=== PATIENT | male | born 1955 | race Two or more races ===

== ENCOUNTER 2023-02-06 08:55 | Inpatient (IN) | payer OTHER ==
[~2023-02-06] VITALS: Ht 167.6 cm; Wt 83.3 kg
[~2023-02-06 08:55] MED LIST: SIMV40TA42 PO
[2023-02-06] MEDS ORDERED: TRANEXAMIC ACID 20 ML ONE (11:27)
[2023-02-06] MEDS ORDERED: VANCOMYCIN HCL 1000 MG VL ONE (11:52)
[2023-02-06] MEDS ORDERED: MORPHINE SULFATE INJ 2 MG/ml SYRG IV PRN ×2 (12:00→18:45)
[2023-02-06] MEDS ORDERED: VANCOMYCIN 1GM/250ML 250 ML IV ONE (12:00)
[2023-02-06] MEDS ORDERED: HYDROmorphone HCL 2 MG/ML VL/or syr IV PRN ×2 (12:00)
[2023-02-06] MEDS ORDERED: METOCLOPRAMIDE HCL 5MG/ml INJ 2ml VIAL IV PRN (12:00)
[2023-02-06] MEDS ORDERED: MIDAZOLAM HCL 2MG/2ML 2ml VIAL (1mg/ml) ONE (12:01)
[2023-02-06] MEDS ORDERED: HYDROmorphone HCL 2 MG/ML VL/or syr ONE ×2 (12:01→20:48)
[2023-02-06] MEDS ORDERED: ONDANSETRON HCL 4 MG/2 ML VIAL ONE (12:01)
[2023-02-06] MEDS ORDERED: fentaNYL CITRATE 100 MCG/2 ML VL ONE ×3 (12:01→17:09)
[2023-02-06] MEDS ORDERED: NEOSTIGMINE 1 MG/ML INJ (10mg/10ML VIAL) ONE (12:01)
[2023-02-06] MEDS ORDERED: ROCURONIUM 10MG/ML 10ML VIAL IV ONE (12:01)
[2023-02-06] MEDS ORDERED: SODIUM CHLORIDE LOCK 30 ML ONE (12:01)
[2023-02-06] MEDS ORDERED: PROPOFOL 10 MG/ML 20 ML IV ONE (12:01)
[2023-02-06] MEDS ORDERED: NITROGLYCERIN 0.4 MG SL TAB SL PRN (18:45)
[2023-02-06] MEDS: D5W/SOD CHLO 0.9% 1,000 ML IV SCH (18:45)
[2023-02-06] MEDS ORDERED: ONDANSETRON HCL 4 MG/2 ML VIAL IV PRN (18:45)
[2023-02-06] MEDS ORDERED: ACETAMINOPHEN 325 MG TAB PO PRN (18:45)
[2023-02-06] MEDS ORDERED: TRANEXAMIC ACID 10 ML ONE (18:47)
[2023-02-06 19:33] VITALS: O2SAT 98
[2023-02-06] MEDS ORDERED: CYCLOBENZAPRINE HCL 10 MG TAB PO ONE (19:45)
[2023-02-06 22:00] VITALS: BP 143/62; PULSE 69; RESP 16; TEMP 97.9; O2SAT 98
[2023-02-06] MEDS: ATORVASTATIN 20 MG TAB PO SCH (22:00)
[2023-02-06] MEDS: CYCLOBENZAPRINE HCL 10 MG TAB PO SCH (22:00)
[2023-02-06] MEDS: DOCUSATE SOD 100 MG CAP PO SCH (22:00)
[2023-02-07] MEDS: HYDROcodone-ACET 10/325MG TAB PO PRN ×2 (01:46→11:20)
[2023-02-07] MEDS: MORPHINE SULFATE INJ 2 MG/ml SYRG IV PRN ×2 (03:10→09:23)
[2023-02-07] MEDS: D5W/SOD CHLO 0.9% 1,000 ML IV SCH (03:16)
[2023-02-07] MEDS ORDERED: VANCOMYCIN PER PHARMACY 0 MG IV SCH (04:00)
[2023-02-07 05:00] VITALS: BP 104/68; PULSE 75; RESP 14; TEMP 98.3; O2SAT 95
[2023-02-07] MEDS: VANCOMYCIN 1GM/250ML 250 ML IV SCH ×2 (06:02→17:25)
[2023-02-07] MEDS: CYCLOBENZAPRINE HCL 10 MG TAB PO SCH ×3 (06:02→22:16)
[2023-02-07 06:28] LABS: Basophils # (auto) 0 10 ^3/uL (0-0.2); Basophils % (auto) 0.1 % (0.0-2.0); Eosinophils # (auto) 0 10 ^3/uL (0-0.8); Hematocrit 38.4 % (41.0-53.0); Hemoglobin 13.3 g/dL (13.5-17.5); Lymphocytes # (auto) 0.8 10 ^3/uL (0.4-5.4); Lymphocytes % (auto) 8.7 % (10.0-50.0); Mean Corpuscular Hemoglobin 31.8 pg (28.0-32.0); Mean Corpuscular Hgb Conc. 34.6 g/dL (32.0-36.0); Mean Corpuscular Volume 91.7 fL (80.0-100.0); Monocytes # (auto) 0.6 10 ^3/uL (0-1.3); Monocytes % (auto) 6.7 % (0.0-12.0); Neutrophils # (auto) 8.1 10 ^3/uL (1.6-8.6); Neutrophils % (auto) 84.5 % (37.0-80.0); Red Blood Cells 4.19 10^6/uL (4.5-5.90); White Blood Cell 9.6 10^3/uL (4.4-10.8)
[2023-02-07 06:36] LABS: Potassium 4.1 mmol/L (3.5-5.1)
[2023-02-07 06:38] LABS: Calcium 8.2 mg/dL (8.5-10.1)
[2023-02-07 06:43] LABS: BUN/Creatinine Ratio 10.9 (10.0-20.0)
[2023-02-07 06:44] LABS: Albumin 3.5 g/dL (3.2-4.8)
[2023-02-07 06:45] LABS: Phosphorus 3.2 mg/dL (2.4-5.1)
[2023-02-07 06:50] LABS: INR 1.05 (0.9-1.15)
[2023-02-07 07:30] VITALS: PULSE 64
[2023-02-07 08:41] VITALS: BP 111/74; PULSE 62; RESP 20; TEMP 98.9; O2SAT 95
[2023-02-07] MEDS: DOCUSATE SOD 100 MG CAP PO SCH (09:26)
[2023-02-07] MEDS: OXYCODONE W/ ACETAMINOPHEN 5/325MG TABLET PO PRN ×2 (13:34→22:17)
[2023-02-07 20:00] VITALS: PULSE 89; RESP 17
[2023-02-07] MEDS: ATORVASTATIN 20 MG TAB PO SCH (22:16)
[2023-02-07] MEDS: SENNA 8.6 MG TAB PO SCH (22:16)
[2023-02-08 05:00] VITALS: BP 120/87; PULSE 97; RESP 16; TEMP 98.7; O2SAT 90
[2023-02-08] MEDS: CYCLOBENZAPRINE HCL 10 MG TAB PO SCH ×2 (05:37→13:31)
[2023-02-08] MEDS: OXYCODONE W/ ACETAMINOPHEN 5/325MG TABLET PO PRN ×2 (05:37→13:31)
[2023-02-08] MEDS: VANCOMYCIN 1GM/250ML 250 ML IV SCH (05:49)
[2023-02-08 08:00] VITALS: PULSE 103
[2023-02-08 08:15] VITALS: BP 107/69; PULSE 86; RESP 18; TEMP 98.9; O2SAT 94
[2023-02-08] MEDS: SENNA 8.6 MG TAB PO SCH (09:14)
[2023-02-08] MEDS ORDERED: PERCOT PO (10:39)
[2023-02-08] MEDS ORDERED: SENN-105 PO (10:39)
[2023-02-08 12:20] VITALS: BP 111/65; PULSE 91; RESP 18; TEMP 98.5; O2SAT 95
[2023-02-08 14:31] VITALS: BP 111/65; PULSE 91; RESP 18; TEMP 98.5; O2SAT 95
[2023-02-08 16:10] VITALS: BP 121/71; PULSE 109; RESP 20; TEMP 98.3; O2SAT 100
== END 2023-02-08 17:35 | disposition home or self-care (01) | DRG 455 ==
LOC: SUR 08:55 → TELE 18:47 → TELE-WESTW 21:20
PROVIDERS: ADMIT Orthopaedic Surgery; ATTEND Orthopaedic Surgery
PROC: 0SG10AJ Fusion of 2 or more Lumbar Vertebral Joints with Interbody Fusion Device, Posterior Approach, Anterior Column, Open Approach (ICD-10-PCS; principal; 2023-02-07)
PROC: 0SG1071 Fusion of 2 or more Lumbar Vertebral Joints with Autologous Tissue Substitute, Posterior Approach, Posterior Column, Open Approach (ICD-10-PCS; 2023-02-07)
PROC: 01NB0ZZ Release Lumbar Nerve, Open Approach (ICD-10-PCS; 2023-02-07)
PROC: 00NY0ZZ Release Lumbar Spinal Cord, Open Approach (ICD-10-PCS; 2023-02-07)
PROC: 4A11X4G Monitoring of Peripheral Nervous Electrical Activity, Intraoperative, External Approach (ICD-10-PCS; 2023-02-07)
DX: M48.062 Spinal stenosis, lumbar region with neurogenic claudication (principal); E78.00 Pure hypercholesterolemia, unspecified; R26.9 Unspecified abnormalities of gait and mobility; M51.16 Intervertebral disc disorders with radiculopathy, lumbar region; E66.8 Other obesity; Z90.49 Acquired absence of other specified parts of digestive tract; I10 Essential (primary) hypertension; Z88.0 Allergy status to penicillin; Z68.32 Body mass index [BMI] 32.0-32.9, adult; Z98.1 Arthrodesis status
CPT/HCPCS: 36415; 72100; 76000; 80069; 80202; 82962; 85025; 85610; 97110; 97116; 97163; 97530; G0378; J2250; J2405; J2704; J7042